=== PATIENT | male | born 1995 | race African-American/Black ===

== ENCOUNTER 2016-04-20 12:49 | Emergency (ER) | payer OTHER ==
[2016-04-20] MEDS ORDERED: ALBUTEROL NEB 2.5 MG/3 ML INH ONE (13:48)
[2016-04-20] MEDS ORDERED: ALBUTEROL 8 GM INHALER INH STA (13:51)
[2016-04-20] MEDS ORDERED: ALBUTEROL NEB 2.5 MG/3 ML INH STA (13:53)
--- NOTE | 2016-04-20 14:02 | ED Physician Documentation ---
PD HPI URI - Stated complaint Stated Complaint: resp - Chief complaint Chief Complaint: Resp - History obtained from History obtained from: Patient - History of Present Illness Timing - onset: How many days ago (3) Timing duration: Days (3) Timing details: Gradual onset Pain level max: 0 Pain level now: 0 Associated symptoms: Chills, Nasal congestion, Rhinorrhea, Dry cough, Dyspnea ( wheezing). No: Fever Contributing factors: Sick contact (mother with pneumonia) Improves by: Rest, MDI/nebulizer (albuterol) Worsened by: Activity, Breathing Similar symptoms before: Diagnosis (URI) Recently seen: Not recently seen Review of Systems Constitutional: denies: Fever Nose: reports: Rhinorrhea / runny nose, Congestion GI: denies: Vomiting Skin: denies: Rash Musculoskeletal: denies: Neck pain, Back pain Neurologic: denies: Focal weakness, Numbness, Headache PD PAST MEDICAL HISTORY - Past Medical History Past Medical History: Yes Respiratory: Asthma, Pneumonia - Past Surgical History Past Surgical History: No - Present Medications Home Medications: Ambulatory Orders Medication Instructions Recorded Confirmed Albuterol Sulf [Ventolin Hfa 1 - 2 puffs INH Q4HR PRN #1 inhaler 01/19/16 Inhaler] Albuterol 2.5 mg INH Q4H PRN #30 neb 04/20/16 Albuterol Sulf [Ventolin Hfa 2 puffs INH Q4HR PRN #1 inhaler 04/20/16 Inhaler] Prednisone 40 mg PO DAILY 5 Days 04/20/16 - Allergies Allergies/Adverse Reactions: Allergies Allergy/AdvReac Type Severity Reaction Status Date / Time peanut Allergy Respiratory Verified 04/20/16 13:46 venom-honey bee Allergy Respiratory Verified 04/20/16 13:46 [bee venom (honey bee)] grass,pollen,dust,mold,cats Allergy Respiratory Uncoded 04/20/16 13:46 - Social History Does the pt smoke?: No Smoking Status: Never smoker Does the pt drink ETOH?: No Does the pt have substance abuse?: No - Immunizations Immunizations are current?: Yes - POLST Patient has POLST: No PD ED PE NORMAL - Vitals Vital signs reviewed: Yes - General General: Alert and oriented X 3, No acute distress, Well developed/nourished - HEENT HEENT: PERRL, Ears normal, Moist mucous membranes, Pharynx benign - Neck Neck: Supple, no meningeal sign - Cardiac Cardiac: RRR - Respiratory Respiratory: No respiratory distress, Other (Wheezing bilaterally.) - Abdomen Abdomen: Soft, Non tender - Derm Derm: Warm and dry - Neuro Neuro: Alert and oriented X 3 - Psych Psych: Normal mood, Normal affect Results - Vitals Vitals: Oxygen O2 Source Room air - Rads (name of study) cxr Radiology: Prelim report reviewed, EMP read contemporaneously, See rad report ( normal) PD MEDICAL DECISION MAKING - ED course Complexity details: reviewed results, re-evaluated patient, considered differential, d/w patient ED course: Patient presents to the emergency department what appears to be a viral upper respiratory infection. No acute findings on chest x-ray. Lungs were clear to auscultation bilaterally after nebulizer treatment. Will place on nebulizers and steroids for home. We will continue supportive care and follow-up with his doctor. Patient counseled regarding signs and symptoms for which I believe and urgent re-evaluation would be necessary. Patient with good understanding of and agreement to plan and is comfortable going home at this time This document was made in part using voice recognition software. While efforts are made to proofread this document, sound alike and grammatical errors may occur. Departure - Departure Disposition: 01 Home, Self Care Clinical Impression: Viral URI with cough Condition: Good Instructions: ED Bronchitis Asthmatic Follow-Up: your,doctor in 1 week [Other] Prescriptions: Albuterol Sulf [Ventolin Hfa Inhaler] 2 puffs INH Q4HR PRN #1 inhaler PRN Reason: Wheezing Albuterol 2.5 mg INH Q4H PRN #30 neb PRN Reason: Wheezing Prednisone 40 mg PO DAILY 5 Days Comments: Return if you worsen. Your xray is normal today. Forms: Activity restrictions Discharge Date/Time: 04/20/16 14:58
[2016-04-20 14:44] VITALS: BP 139/72
--- NOTE | 2016-04-20 14:56 | XRAY Preliminary Report ---
Exam: XR Chest 2 View PA/LAT IMPRESSION: Normal 2-view chest radiography. [facility] SITE ID: [id number]
--- NOTE | 2016-04-20 14:58 | XRAY Report ---
EXAM: CHEST RADIOGRAPHY EXAM DATE: 04/20/2016 02:32 PM. CLINICAL HISTORY: Cough, fever. COMPARISON: None. TECHNIQUE: 2 views. FINDINGS: Lungs/Pleura: No focal opacities evident. No pleural effusion. No pneumothorax. Normal volumes. Mediastinum: Heart and mediastinal contours are unremarkable. Other: None. IMPRESSION: Normal 2-view chest radiography. [facility] Referring Provider Line: [phone] SITE ID: [id number]
== END 2016-04-20 14:58 | disposition home or self-care (01) ==
LOC: ED 12:49
DX: J06.9 Acute upper respiratory infection, unspecified (principal); B97.89 Other viral agents as the cause of diseases classified elsewhere; J45.909 Unspecified asthma, uncomplicated
CPT/HCPCS: 71020; 99283; J7613

== ENCOUNTER 2018-02-17 11:01 | Emergency (ER) | payer SELFPAY ==
[2018-02-17] MEDS ORDERED: diphenhydrAMINE INJ 50 MG/ML VIAL IVP STA (11:10)
[2018-02-17] MEDS ORDERED: DEXAMETHASONE 10 MG/ML VIAL IVP STA (11:10)
[2018-02-17] MEDS ORDERED: FAMOTIDINE 20 MG/50 ML 50 ML IV ONE (11:10)
--- NOTE | 2018-02-17 11:12 | ED Physician Documentation ---
History of Present Illness - Stated complaint Stated Complaint: ALLERGIC REACTION - Additonal information Additional information: hx from pt 22 male hx peanut allergy with anaphylaxis accidentally at a cookie with peanuts throat felt tight vomited twice did not use his epi or take other meds little better now Review of Systems Throat: reports: Other (throat tight nasal congestion no lip or tongue swelling) Respiratory: denies: Dyspnea GI: reports: Vomiting. denies: Abdominal Pain, Diarrhea PD PAST MEDICAL HISTORY - Past Medical History Respiratory: Asthma, Pneumonia - Past Surgical History Past Surgical History: No - Present Medications Home Medications: Ambulatory Orders Medication Instructions Recorded Confirmed Epinephrine [Epipen 2-Tom] 0.3 mg IJ ONCE #1 auto.injct 02/17/18 Loratadine [Claritin] 10 mg PO DAILY #3 tablet 02/17/18 predniSONE [Deltasone] 60 mg PO DAILY 3 Days #9 tablet 02/17/18 - Allergies Allergies/Adverse Reactions: Allergies Allergy/AdvReac Type Severity Reaction Status Date / Time nut - unspecified Allergy Respiratory Verified 02/17/18 11:51 peanut Allergy Respiratory Verified 02/17/18 11:23 venom-honey bee Allergy Respiratory Verified 02/17/18 11:23 [bee venom (honey bee)] grass,pollen,dust,mold,cats Allergy Respiratory Uncoded 02/17/18 11:23 - Social History Does the pt smoke?: No Smoking Status: Never smoker Does the pt drink ETOH?: No Does the pt have substance abuse?: No - Immunizations Immunizations are current?: Yes - POLST Patient has POLST: No PD ED PE NORMAL - Vitals Vital signs reviewed: Yes - HEENT HEENT: Other (rhinorrhea, no oral lip tongue uvula swelling) - Neck Neck: Supple, no meningeal sign - Cardiac Cardiac: RRR - Respiratory Respiratory: No respiratory distress, Clear bilaterally, Other (no wheeze) - Abdomen Abdomen: Non tender - Derm Derm: No rash - Neuro Neuro: Alert and oriented X 3 Results - Vitals Vitals: Vital Signs - 24 hr 02/17/18 02/17/18 02/17/18 11:04 11:20 11:33 Temperature 36.1 C L Heart Rate 84 72 63 Respiratory 14 16 13 Rate Blood Pressure 143/88 H 143/88 H 140/75 H O2 Saturation 100 99 97 Oxygen O2 Source Room air Departure - Departure Disposition: 01 Home, Self Care Clinical Impression: Peanut allergy Condition: Good Instructions: ED Allergic React Food Prescriptions: Epinephrine [Epipen 2-Tom] 0.3 mg IJ ONCE #1 auto.injct Loratadine [Claritin] 10 mg PO DAILY #3 tablet predniSONE [Deltasone] 60 mg PO DAILY 3 Days #9 tablet Comments: Thankfully this reaction was not severe enough to need the epi pen. But you should always carry one with you. It is safe for you to go now. Recommend you take claritin (antihistamine) and prednisone (steroid) once a day for 3 more days to prevent rebound symptoms - start this evening Forms: Activity restrictions
[2018-02-17 11:34] VITALS: BP 140/75
== END 2018-02-17 13:40 | disposition home or self-care (01) ==
LOC: ED 11:01
DX: T78.1XXA Other adverse food reactions, not elsewhere classified, initial encounter (principal); X58.XXXA Exposure to other specified factors, initial encounter
CPT/HCPCS: 96365; 96375; 99283; J1200

== ENCOUNTER 2018-12-29 12:11 | Emergency (ER) | payer MEDICAID ==
--- NOTE | 2018-12-29 12:35 | ED Physician Documentation ---
PD HPI CHEST PAIN - Stated complaint Stated Complaint: CP - Chief complaint Chief Complaint: Cardiac - History obtained from History obtained from: Patient - History of Present Illness Timing - onset: How many weeks ago (3-4) Timing - onset during: Light activity. No: Rest, Eating Timing - details: Gradual onset, Waxing and waning. No: Intermittant Quality: Tightness, Aching, Pain Location: Right chest Radiation: No: Jaw, Neck, Back Worsened by: Movement (shoulder and hurts more if turns head to sides.). No: Eating Associated symptoms: No: Shortness of air, Nausea, Feeling faint / dizzy, General Weakness, Palpitations Similar symptoms before: Has not had sx before Recently seen: Not recently seen Review of Systems Constitutional: denies: Fever, Chills Nose: denies: Rhinorrhea / runny nose, Congestion Throat: denies: Sore throat Respiratory: denies: Cough PD PAST MEDICAL HISTORY - Past Medical History Respiratory: Asthma, Pneumonia - Past Surgical History Past Surgical History: No - Present Medications Home Medications: Ambulatory Orders Medication Instructions Recorded Confirmed EPINEPHrine [Epipen 2-Tom] 0.3 mg IJ ONCE #1 auto.injct 02/17/18 Loratadine [Claritin] 10 mg PO DAILY #3 tablet 02/17/18 predniSONE [Deltasone] 60 mg PO DAILY 3 Days #9 tablet 02/17/18 Naproxen 500 mg PO BID #20 tablet 12/29/18 Tramadol HCl 50 mg PO Q6H PRN #15 tablet 12/29/18 dexAMETHasone [Decadron] 4 mg PO DAILY #5 tablet 12/29/18 - Allergies Allergies/Adverse Reactions: Allergies Allergy/AdvReac Type Severity Reaction Status Date / Time nut - unspecified Allergy Respiratory Verified 12/29/18 12:18 peanut Allergy Respiratory Verified 12/29/18 12:18 venom-honey bee Allergy Respiratory Verified 12/29/18 12:18 [bee venom (honey bee)] grass,pollen,dust,mold,cats Allergy Respiratory Uncoded 12/29/18 12:18 - Social History Does the pt smoke?: No Smoking Status: Never smoker Does the pt drink ETOH?: No Does the pt have substance abuse?: No - Immunizations Immunizations are current?: Yes - POLST Patient has POLST: No PD ED PE NORMAL - Vitals Vital signs reviewed: Yes - General General: Alert and oriented X 3, No acute distress, Well developed/nourished - HEENT HEENT: Moist mucous membranes, Pharynx benign - Neck Neck: Supple, no meningeal sign, No adenopathy - Cardiac Cardiac: RRR, No murmur - Respiratory Respiratory: Clear bilaterally, Other (no chestwall tenderness) - Abdomen Abdomen: Soft, Non tender - Derm Derm: Normal color, Warm and dry, No rash - Extremities Extremities: Normal ROM s pain, No edema, No calf tenderness / cord - Neuro Neuro: Alert and oriented X 3, No motor deficit, Normal speech Results - Vitals Vitals: Vital Signs - 24 hr 12/29/18 12/29/18 12/29/18 12:19 13:23 13:32 Temperature 36.7 C Heart Rate 61 68 75 Respiratory 16 20 18 Rate Blood Pressure 150/62 H 125/65 125/65 O2 Saturation 99 98 98 12/29/18 14:43 Temperature Heart Rate 70 Respiratory 20 Rate Blood Pressure 127/71 O2 Saturation 99 Oxygen O2 Source Room air - EKG (time done) 12:22 Rate: Rate (enter#) (69) Rhythm: NSR Sen[place]: Normal Intervals: Normal MT QRS: Normal Ischemia: Normal ST segments. No: ST elevation c/w ischemia, ST depression - Labs Labs: Laboratory Tests 12/29/18 12/29/18 12/29/18 13:20 13:20 13:20 WBC 7.4 RBC 5.46 Hgb 15.5 Hct 47.5 MCV 87.0 MCH 28.4 MCHC 32.6 RDW 12.7 Plt Count 185 MPV 10.2 Neut # (Auto) 4.1 Lymph # (Auto) 2.2 Gillespie # (Auto) 0.5 Eos # (Auto) 0.5 Baso # (Auto) 0.1 Absolute Nucleated RBC 0.00 Nucleated RBC % 0.0 Sodium 140 Potassium 3.7 Chloride 101 Carbon Dioxide 31 Anion Gap 8.0 BUN 15 Creatinine 1.4 H Estimated GFR (MDRD) 76 L Glucose 89 Calcium 9.4 Total Bilirubin 0.7 AST 20 ALT 15 Alkaline Phosphatase 67 Troponin I High Sens < 2.3 L C-Reactive Protein < 1.0 B-Natriuretic Peptide Total Protein 7.8 Albumin 4.2 Globulin 3.6 Albumin/Globulin Ratio 1.2 Lipase 37 12/29/18 13:20 WBC RBC Hgb Hct MCV MCH MCHC RDW Plt Count MPV Neut # (Auto) Lymph # (Auto) Gillespie # (Auto) Eos # (Auto) Baso # (Auto) Absolute Nucleated RBC Nucleated RBC % Sodium Potassium Chloride Carbon Dioxide Anion Gap BUN Creatinine Estimated GFR (MDRD) Glucose Calcium Total Bilirubin AST ALT Alkaline Phosphatase Troponin I High Sens C-Reactive Protein B-Natriuretic Peptide 10 Total Protein Albumin Globulin Albumin/Globulin Ratio Lipase - Rads (name of study) chest xray Radiology: Prelim report reviewed (normal chest), See rad report PD MEDICAL DECISION MAKING - ED course Complexity details: reviewed results, considered differential, d/w patient Departure - Departure Disposition: 01 Home, Self Care Clinical Impression: Anterior chest wall pain Condition: Stable Record reviewed to determine appropriate education?: Yes Instructions: ED Strain Chest Wall Prescriptions: dexAMETHasone [Decadron] 4 mg PO DAILY #5 tablet Naproxen 500 mg PO BID #20 tablet Tramadol HCl 50 mg PO Q6H PRN #15 tablet PRN Reason: Pain Comments: There are no signs of heart or lung related causes based on your EKG, chest x- ray, blood tests. I presume its musculoskeletal pain. Treat this with anti-inflammatories of naproxen twice daily for 7 to 10 days with food. Also Decadron steroid anti-inflammatory daily for 5 days. Add Tylenol and/or tramadol if needed for pains. Stay well-hydrated. Recheck if not improving well over the next several days and all better by a week. Discharge Date/Time: 12/29/18 14:44
[2018-12-29] MEDS ORDERED: ACETAMINOPHEN 325 MG TABLET PO STA (13:00)
[2018-12-29] MEDS ORDERED: traMADol 50 MG TABLET PO STA (13:00)
[2018-12-29] MEDS ORDERED: IBUPROFEN 800 MG TABLET PO STA (13:00)
[2018-12-29 13:27] LABS: BASOPHILS # (AUTO) 0.1 10^3/uL (0.0-0.1); BASOPHILS % (AUTO) 0.7 %; EOSINOPHILS # (AUTO) 0.5 10^3/uL (0.0-0.7); EOSINOPHILS % (AUTO) 6.2 %; HGB - HEMOGLOBIN 15.5 g/dL (14.0-18.0); LYMPHOCYTES # (AUTO) 2.2 10^3/uL (1.5-3.5); LYMPHOCYTES % (AUTO) 29.7 %; MEAN CORPUSCULAR HEMOGLOBIN 28.4 pg (27.0-31.0); MEAN CORPUSCULAR HGB CONC 32.6 g/dL (32.0-36.0); MEAN PLATELET VOLUME 10.2 fL (7.4-11.4); MONOCYTES # (AUTO) 0.5 10^3/uL (0.0-1.0); NEUTROPHILS # (AUTO) 4.1 10^3/uL (1.5-6.6); NEUTROPHILS % (AUTO) 55.9 %; PLT - PLATELET COUNT 185 10^3/uL (130-450); RED BLOOD COUNT 5.46 10^6/uL (4.70-6.10); RED CELL DISTRIBUTION WIDTH 12.7 % (12.0-15.0); WHITE BLOOD COUNT 7.4 x10^3/uL (4.8-10.8)
--- NOTE | 2018-12-29 13:34 | XRAY Report ---
Reason: dyspnea/ cough Procedure Date: 12/29/2018 Accession Number: [id number] / [id number] Procedure: XR - Chest 2 View X-Ray CPT Code: 44521 Final Report FULL RESULT: EXAM: CHEST RADIOGRAPHY EXAM DATE: 12/29/2018 01:11 PM. CLINICAL HISTORY: Cough. COMPARISON: CHEST 2 VIEW PA/LAT 04/20/2016 2:07 PM. TECHNIQUE: 2 views. FINDINGS: Lungs/Pleura: No focal opacities evident. No pleural effusion. No pneumothorax. Normal volumes. Mediastinum: Heart and mediastinal contours are unremarkable. Other: None. IMPRESSION: Normal 2-view chest radiography. [facility]
[2018-12-29 13:47] LABS: ALBUMIN 4.2 g/dL (3.2-5.5); ALBUMIN/GLOBULIN RATIO 1.2 (1.0-2.2); ALKALINE PHOSPHATASE 67 IU/L (42-121); ALT ALANINE AMINOTRANSFERASE 15 IU/L (10-60); AST ASPARTATE AMINOTRANSFERASE 20 IU/L (10-42); BILIRUBIN,TOTAL 0.7 mg/dL (0.2-1.0); BUN - BLOOD UREA NITROGEN 15 mg/dL (6-20); CALCIUM 9.4 mg/dL (8.5-10.3); CARBON DIOXIDE - CO2 31 mmol/L (21-32); CHLORIDE 101 mmol/L (101-111); CREATININE 1.4 mg/dL (0.6-1.2); GFR - MDRD 76 (>89); GLUCOSE 89 mg/dL (70-100); LIPASE 37 U/L (22-51); SODIUM 140 mmol/L (135-145); TOTAL PROTEIN 7.8 g/dL (6.7-8.2)
[2018-12-29 13:52] LABS: CRP - C-REACTIVE PROTEIN < 1.0 mg/dL (0-1.0)
[2018-12-29 14:44] VITALS: BP 127/71
== END 2018-12-29 14:44 | disposition home or self-care (01) ==
LOC: ED 12:11
DX: R07.89 Other chest pain (principal)
CPT/HCPCS: 36415; 71046; 80053; 83690; 83880; 84484; 85025; 86140; 93005; 99284; A9270

== ENCOUNTER 2019-03-14 12:37 | Emergency (ER) | payer MEDICAID ==
[2019-03-14] MEDS ORDERED: ALBUTEROL NEB 2.5 MG/3 ML INH STA (13:26)
[2019-03-14] MEDS ORDERED: predniSONE 20 MG TABLET PO STA (13:27)
--- NOTE | 2019-03-14 13:35 | ED Physician Documentation ---
PD HPI URI - Stated complaint Stated Complaint: COUGH/CONGESTION - Chief complaint Chief Complaint: Heent - History obtained from History obtained from: Patient - History of Present Illness Timing - onset: How many days ago (3) Timing duration: Days (3) Timing details: Gradual onset Pain level max: 0 Pain level now: 0 Associated symptoms: Fever, Chills, Sweats, Nasal congestion, Rhinorrhea, Dry cough, Dyspnea (wheezing). No: Sinus pain, Sore throat, Swollen nodes, Chest pain Contributing factors: Sick contact Improves by: Rest, MDI/nebulizer (albuterol) Worsened by: Activity, Breathing Recently seen: Not recently seen Review of Systems Ten Systems: 10 systems reviewed and negative Constitutional: reports: Fever, Chills Nose: reports: Rhinorrhea / runny nose, Congestion Respiratory: reports: Cough, Wheezing GI: reports: Vomiting (x1). denies: Diarrhea : denies: Dysuria, Hesitancy Skin: denies: Rash Musculoskeletal: denies: Neck pain, Back pain Neurologic: denies: Headache PD PAST MEDICAL HISTORY - Past Medical History Past Medical History: Yes Respiratory: Asthma, Pneumonia - Past Surgical History Past Surgical History: No - Present Medications Home Medications: Ambulatory Orders Medication Instructions Recorded Confirmed EPINEPHrine [Epipen 2-Tom] 0.3 mg IJ ONCE #1 auto.injct 02/17/18 Loratadine [Claritin] 10 mg PO DAILY #3 tablet 02/17/18 predniSONE [Deltasone] 60 mg PO DAILY 3 Days #9 tablet 02/17/18 Naproxen 500 mg PO BID #20 tablet 12/29/18 Tramadol HCl 50 mg PO Q6H PRN #15 tablet 12/29/18 dexAMETHasone [Decadron] 4 mg PO DAILY #5 tablet 12/29/18 Albuterol Sulfate [Proair Hfa 1 - 2 puffs INH Q4H PRN #1 inhaler 03/14/19 Inhaler] Cetirizine HCl/Pseudoephedrine 1 each PO BID PRN #30 tab.er.12h 03/14/19 [Zyrtec-D Tablet] predniSONE [Deltasone] 10 mg PO [id number] #42 tab 03/14/19 - Allergies Allergies/Adverse Reactions: Allergies Allergy/AdvReac Type Severity Reaction Status Date / Time nut - unspecified Allergy Respiratory Verified 03/14/19 13:01 peanut Allergy Respiratory Verified 03/14/19 13:01 venom-honey bee Allergy Respiratory Verified 03/14/19 13:01 [bee venom (honey bee)] grass,pollen,dust,mold,cats Allergy Respiratory Uncoded 03/14/19 13:01 - Social History Does the pt smoke?: No Smoking Status: Never smoker Does the pt drink ETOH?: No Does the pt have substance abuse?: No Substance Use and Type: Marijuana - Immunizations Immunizations are current?: Yes - POLST Patient has POLST: No PD ED PE NORMAL - Vitals Vital signs reviewed: Yes - General General: Alert and oriented X 3, No acute distress - HEENT HEENT: Ears normal, Moist mucous membranes, Pharynx benign - Neck Neck: Supple, no meningeal sign, No adenopathy - Cardiac Cardiac: RRR - Respiratory Respiratory: Clear bilaterally, Other (wheezing B) - Abdomen Abdomen: Soft, Non tender, Non distended - Derm Derm: Warm and dry, No rash - Neuro Neuro: Alert and oriented X 3 Results - Vitals Vitals: Vital Signs - 24 hr 03/14/19 03/14/19 03/14/19 13:01 13:43 14:39 Temperature 36.8 C Heart Rate 66 71 Respiratory 14 14 Rate Blood Pressure 150/100 H 129/83 H O2 Saturation 97 Oxygen O2 Source Room air - Rads (name of study) cxr Radiology: Prelim report reviewed, EMP read contemporaneously, See rad report (No acute disease) PD MEDICAL DECISION MAKING - ED course Complexity details: reviewed results, re-evaluated patient, considered differential, d/w patient ED course: Patient with what appears to be a viral syndrome. Feels better after steroids and albuterol treatment. He is well-appearing, nontoxic. Afebrile. No hypoxia or respiratory distress. Patient counseled regarding signs and symptoms for which I believe and urgent re-evaluation would be necessary. Patient with good understanding of and agreement to plan and is comfortable going home at this time This document was made in part using voice recognition software. While efforts are made to proofread this document, sound alike and grammatical errors may occur. Departure - Departure Disposition: 01 Home, Self Care Clinical Impression: Viral URI with cough Condition: Good Instructions: ED URI Viral W Wheezing Follow-Up: your,doctor in 1 week if not better [Other] Prescriptions: Albuterol Sulfate [Proair Hfa Inhaler] 1 - 2 puffs INH Q4H PRN #1 inhaler PRN Reason: Shortness Of Air/Wheezing Cetirizine HCl/Pseudoephedrine [Zyrtec-D Tablet] 1 each PO BID PRN #30 tab.er.12h PRN Reason: nasal congestion predniSONE [Deltasone] 10 mg PO [id number] #42 tab Comments: Drink plenty of fluids. Return if you worsen. Continue your nebulizer at home. Take the steroids as prescribed. Discharge Date/Time: 03/14/19 14:41
--- NOTE | 2019-03-14 14:13 | XRAY Report ---
Reason: cough Procedure Date: 03/14/2019 Accession Number: [id number] / [id number] Procedure: XR - Chest 2 View X-Ray CPT Code: 67154 Final Report FULL RESULT: EXAM: CHEST RADIOGRAPHY EXAM DATE: 03/14/2019 01:55 PM. CLINICAL HISTORY: Cough. COMPARISON: CHEST 2 VIEW 12/29/2018 1:03 PM. TECHNIQUE: 2 views. FINDINGS: Lungs/Pleura: No focal opacities evident. No pleural effusion. No pneumothorax. Normal volumes. Mediastinum: Heart and mediastinal contours are unremarkable. Other: None. IMPRESSION: Normal 2-view chest radiography. [facility]
[2019-03-14 14:41] VITALS: BP 129/83
== END 2019-03-14 14:41 | disposition home or self-care (01) ==
LOC: ED 12:37
DX: J06.9 Acute upper respiratory infection, unspecified (principal)
CPT/HCPCS: 71046; 94640; 99283; 99284; J7512

== ENCOUNTER 2019-10-10 10:29 | Emergency (ER) | payer MEDICAID ==
--- NOTE | 2019-10-10 11:31 | XRAY Report ---
PROCEDURE: Ankle 3 View RT INDICATIONS: injury TECHNIQUE: 3 views of the ankle were acquired. COMPARISON: None FINDINGS: Bones: No fractures or dislocations. Ankle mortise is normally aligned. No suspicious bony lesions . Soft tissues: No tibiotalar joint effusion. Achilles tendon appears normal. Lateral soft tissue sw elling is noted in the ligamentous injury cannot be excluded. Accessory ossicle noted. IMPRESSION: No fracture. No osseous lesion. If there is continued clinical concern for pathology, then repeat pl ain film radiographs (7-10 days) or advanced imaging (CT, MR, bone scan) should be considered for fur ther evaluation. Reviewed by: Antonietta Gordon MD, PhD on 10/10/2019 11:29 AM PDT Approved by: Antonietta Gordon MD, PhD on 10/10/2019 11:29 AM PDT Station ID: [id number]
[2019-10-10] MEDS ORDERED: IBUPROFEN 800 MG TABLET PO STA (11:43)
--- NOTE | 2019-10-10 11:55 | ED Physician Documentation ---
PD HPI LOWER EXT INJURY - Stated complaint Stated Complaint: R ANKLE PX - Chief complaint Chief Complaint: Trauma Ext - History obtained from History obtained from: Patient - History of Present Illness PD HPI LOW EXT INJURY LOCATION: Right, Ankle Type of injury: Twist Where injury occurred: Home Timing - onset: Last night Pain level max: 8 Pain level now: 4 Improved by: Rest Worsened by: Moving, Palpating Associated symptoms: Swelling, Discolored Recently seen: Not recently seen - Additional information Additional information: 24-year-old male states that he tripped on the stairs last night and twisted his right ankle. Increased pain today especially with walking. There is swelling as well. Review of Systems Musculoskeletal: denies: Neck pain, Back pain Neurologic: denies: Head injury PD PAST MEDICAL HISTORY - Past Medical History Past Medical History: Yes Cardiovascular: None Respiratory: Asthma, Pneumonia Neuro: None Endocrine/Autoimmune: None GI: None : None HEENT: None Psych: None Musculoskeletal: None Derm: None - Past Surgical History Past Surgical History: No - Present Medications Home Medications: Ambulatory Orders Medication Instructions Recorded Confirmed EPINEPHrine [Epipen 2-Tom] 0.3 mg IJ ONCE #1 auto.injct 02/17/18 10/10/19 Ibuprofen [Motrin] 800 mg PO Q8H PRN #30 tablet 10/10/19 - Allergies Allergies/Adverse Reactions: Allergies Allergy/AdvReac Type Severity Reaction Status Date / Time nut - unspecified Allergy Respiratory Verified 10/10/19 10:51 peanut Allergy Respiratory Verified 10/10/19 10:51 venom-honey bee Allergy Respiratory Verified 10/10/19 10:51 [bee venom (honey bee)] grass,pollen,dust,mold,cats Allergy Respiratory Uncoded 03/14/19 13:01 - Social History Does the pt smoke?: No Smoking Status: Never smoker Does the pt drink ETOH?: No Does the pt have substance abuse?: Yes Substance Use and Type: Marijuana - Immunizations Immunizations are current?: Yes - POLST Patient has POLST: No PD ED PE NORMAL - Vitals Vital signs reviewed: Yes - General General: Alert and oriented X 3, No acute distress - Derm Derm: Warm and dry - Extremities Extremities: Other (Tender to palpation over the lateral malleolus of the right ankle. Moderate swelling. Neurovascularly intact. Otherwise normal examination of the foot, ankle and lower leg.) - Neuro Neuro: Alert and oriented X 3 Results - Vitals Vitals: Vital Signs - 24 hr 10/10/19 10/10/19 10:52 12:05 Temperature 36.9 C Heart Rate 76 62 Respiratory 16 16 Rate Blood Pressure 136/61 H 147/60 H O2 Saturation 98 98 Oxygen O2 Source Room air - Rads (name of study) Right ankle x-ray Radiology: Prelim report reviewed, EMP read contemporaneously, See rad report (No acute abnormality) PD MEDICAL DECISION MAKING - ED course Complexity details: reviewed results, re-evaluated patient, considered differential, d/w patient ED course: 24-year-old with an ankle sprain. Given crutches and an Aircast. Will make him weightbearing as tolerated. Patient counseled regarding signs and symptoms for which I believe and urgent re-evaluation would be necessary. Patient with good understanding of and agreement to plan and is comfortable going home at this time This document was made in part using voice recognition software. While efforts are made to proofread this document, sound alike and grammatical errors may occur. Departure - Departure Disposition: 01 Home, Self Care Clinical Impression: Right ankle sprain Qualifiers: Encounter type: initial encounter Involved ligament of ankle: unspecified ligament Qualified Code(s): S93.401A - Sprain of unspecified ligament of right ankle, initial encounter Condition: Good Instructions: ED Sprain Ankle Follow-Up: your,doctor in 1 week [Other] Prescriptions: Ibuprofen [Motrin] 800 mg PO Q8H PRN #30 tablet PRN Reason: PAIN &/OR FEVER Comments: Return if you worsen. Follow-up with your doctor in 1 week for repeat evaluation. You may bear weight as tolerated. Your x-rays do not show any fractures today Forms: Activity restrictions Discharge Date/Time: 10/10/19 12:07
[2019-10-10 12:06] VITALS: BP 147/60
== END 2019-10-10 12:07 | disposition home or self-care (01) ==
LOC: ED 10:29
DX: S93.401A Sprain of unspecified ligament of right ankle, initial encounter (principal); X50.1XXA Overexertion from prolonged static or awkward postures, initial encounter; W10.9XXA Fall (on) (from) unspecified stairs and steps, initial encounter; Y93.01 Activity, walking, marching and hiking; Y92.009 Unspecified place in unspecified non-institutional (private) residence as the place of occurrence of the external cause
CPT/HCPCS: 73610; 99283; A9270

== ENCOUNTER 2023-02-05 10:00 | Outpatient (CLI) | payer SELFPAY ==
--- NOTE | 2023-02-05 15:49 | XRAY Report ---
PROCEDURE: Chest 2V INDICATIONS: ASTHMA WITH ACUTE EXACERBATION TECHNIQUE: 2 views of the chest were acquired. COMPARISON: 03/14/2019 FINDINGS: Surgical changes and devices: None. Lungs and pleura: No pleural effusions or pneumothorax. Lungs are clear. Mediastinum: Mediastinal contours appear normal. Heart size is normal. Bones and chest wall: No suspicious bony lesions. Overlying soft tissues appear unremarkable. IMPRESSION: No acute cardiopulmonary process. Reviewed by: Valeria Jones MD on 02/05/2023 3:48 PM PST Approved by: Valeria Jones MD on 02/05/2023 3:48 PM PST Station ID: [id number]
== END 2023-02-05 10:15 | disposition home or self-care (01) ==
LOC: DI.N 10:00
PROVIDERS: ATTEND Family Medicine
DX: J45.901 Unspecified asthma with (acute) exacerbation (principal)